=== PATIENT | male | born 1970 ===

== ENCOUNTER 2021-07-31 17:00 | Emergency (ER) | payer BC ==
[2021-07-31] MEDS ORDERED: Famotidine 20 MG/2 ML SDV IVPUSH ONE (17:10)
[2021-07-31] MEDS ORDERED: methylPREDNISolone Sodium Succinate 125 MG/2 ML SDV IV ONE (17:10)
[2021-07-31] MEDS ORDERED: diphenhydrAMINE 50 MG/ML SDV IVPUSH ONE (17:10)
[2021-07-31] MEDS ORDERED: EPINEPHrine 1 MG/ML SDV SUBCUT ONE (17:11)
[2021-07-31] MEDS ORDERED: EPINEPHrine 1 MG/1 ML Amp SUBCUT ONE (17:19)
[2021-07-31] MEDS ORDERED: Take Home: predniSONE 20 MG, 2 Tab Pack PO ONE (17:51)
--- NOTE | 2021-07-31 18:48 | EDM.PDOC ---
ED HPI GENERAL MEDICAL PROBLEM - General Chief Complaint: Allergic Reaction Stated Complaint: STUNG BY BEE;ALLERGIC Time Seen by Provider: 07/31/21 17:02 Source of Information: Reports: Patient History Limitations: Reports: No Limitations - History of Present Illness INITIAL COMMENTS - FREE TEXT/NARRATIVE: Pt. states that he was stung in the lower lip about 30 min prior to arriving in the ER. Pt. states that shortly thereafter, he developed onset if rash/pruritus to his torso and extremities. 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 Pt. also complains of edema and discomfort to his lower lip in area or sting. He denies any throat tightness/pain. Denies any shortness of breath. No wheezing. Denies any chest pain, nausea, or vomiting. No lightheadedness or weakness. Onset: Today Onset Date: 07/31/21 Location: Reports: Face, Generalized Associated Symptoms: Reports: Rash - Related Data Allergies Allergy/AdvReac Type Severity Reaction Status Date / Time bee venom protein (honey bee) Allergy Anaphylactic Verified 07/31/21 17:09 Shock Home Meds: Home Meds . [Unable to Verify Home Med List] 07/31/21 [History] Past Medical History Cardiovascular History: Reports: Hypertension Gastrointestinal History: Reports: Other (See Below) Other Gastrointestinal History: ulcerative cholitis Musculoskeletal History: Reports: Gout Endocrine/Metabolic History: Reports: Diabetes, Type II Social & Family History - Tobacco Use Tobacco Use Status *Q: Never Tobacco User ED ROS ALLERGIC REACTION - Review of Systems Review Of Systems: See Below Constitutional: Reports: No Symptoms HEENT: Reports: Other (swelling to lip from bee sting) Respiratory: Reports: No Symptoms. Denies: Shortness of Breath, Wheezing Cardiovascular: Reports: No Symptoms Endocrine: Reports: No Symptoms GI/Abdominal: Reports: No Symptoms : Reports: No Symptoms Musculoskeletal: Reports: No Symptoms Skin: Reports: Pruritis, Rash, Erythema Neurological: Reports: No Symptoms Psychiatric: Reports: No Symptoms Hematologic/Lymphatic: Reports: No Symptoms Immunologic: Reports: Anaphylaxis, Environmental Allergy ED EXAM GENERAL NO PERIP PULSE - Physical Exam Exam: See Below Exam Limited By: No Limitations General Appearance: Alert, WD/WN, No Apparent Distress Eye Exam: Bilateral Eye: EOMI, PERRL Nose: Normal Inspection, Normal Mucosa, No Blood Throat/Mouth: Normal Inspection, Normal Lips, Normal Teeth, Normal Gums, Normal Oropharynx, Normal Voice, No Airway Compromise Head: Atraumatic, Normocephalic Neck: Normal Inspection, Supple, Non-Tender, Full Range of Motion Respiratory/Chest: No Respiratory Distress, Lungs Clear, Normal Breath Sounds, No Accessory Muscle Use, Chest Non-Tender Cardiovascular: Normal Peripheral Pulses, Regular Rate, Rhythm, No Edema, No JVD, No Murmur GI/Abdominal: Normal Bowel Sounds, Soft, Non-Tender, No Organomegaly, No Distention, No Mass (Male) Exam: Deferred Rectal (Males) Exam: Deferred Back Exam: Normal Inspection, Full Range of Motion Extremities: Redness Neurological: Alert, Oriented, CN II-XII Intact, No Motor/Sensory Deficits Psychiatric: Normal Affect, Normal Mood Skin Exam: Warm, Dry, Intact, Erythema, Excoriations Lymphatic: No Adenopathy Course - Vital Signs Last Recorded V/S: Last Vital Signs Temp 37.3 C 07/31/21 17:00 Pulse 113 H 07/31/21 17:00 Resp 20 07/31/21 17:00 BP 130/82 07/31/21 17:00 Pulse Ox 97 07/31/21 17:00 - Orders/Labs/Meds Meds: Medications Discontinued Medications Generic Name Dose Route Start Last Admin Trade Name Kasey PRN Reason Stop Dose Admin Diphenhydramine HCl 50 mg 07/31/21 17:10 07/31/21 17:20 Diphenhydramine 50 Mg/Ml Sdv IVPUSH 07/31/21 17:11 50 mg ONETIME ONE Administration Epinephrine HCl 0.5 mg 07/31/21 17:11 Epinephrine 1 Mg/Ml Sdv SUBCUT 07/31/21 17:12 ONETIME ONE Epinephrine HCl 0.5 mg 07/31/21 17:19 07/31/21 17:19 Epinephrine 1 Mg/1 Ml Amp SUBCUT 07/31/21 17:20 0.5 mg ONETIME ONE Administration Famotidine 20 mg 07/31/21 17:10 07/31/21 17:20 Famotidine 20 Mg/2 Ml Sdv IVPUSH 07/31/21 17:11 20 mg ONETIME ONE Administration Methylprednisolone Sodium Succinate 125 mg 07/31/21 17:10 07/31/21 17:20 Methylprednisolone Sodium Succinate 125 Mg/2 Ml Sdv IV 07/31/21 17:11 125 mg ONETIME ONE Administration Prednisone 2 packet 07/31/21 17:51 07/31/21 17:57 Take Home: Prednisone 20 Mg, 2 Tab Pack PO 07/31/21 17:52 2 packet ONETIME ONE Administration - Re-Assessments/Exams Free Text/Narrative Re-Assessment/Exam: 07/31/21 18:50 Pt. reported near complete resolution of symptoms after receiving the above medications and requested discharge shortly after receiving them. He was observed for some time, and lip swelling and erythema were noted to be improving. Departure - Departure Time of Disposition: 18:00 Disposition: Home, Self-Care 01 Clinical Impression: Allergic reaction - Discharge Information Instructions: Allergies, Adult, [id number], Prednisone tablets Referrals: Omar Anguiano MD [Primary Care Provider] - Forms: ED Department Discharge Additional Instructions: Prednisone 20mg 2 tabs daily for 6 days total Epi Pen 0.3mg inject at onset of allergic reaction. Benadryl 25mg 2 tabs every 4-6 hours for continued itching Return to ER if you have troubles breathing, throat tightness, or call if you have any worrisome signs/symptoms. Sepsis Event Note (ED) - Evaluation Sepsis Screening Result: No Definite Risk - Focused Exam Vital Signs: Vital Signs Temp Pulse Resp BP Pulse Ox 07/31/21 17:00 37.3 C 113 H 20 130/82 97 - Assessment/Plan Plan: Prednisone 20mg 2 tabs daily for 6 days total Epi Pen 0.3mg inject at onset of allergic reaction. Benadryl 25mg 2 tabs every 4-6 hours for continued itching Return to ER if you have troubles breathing, throat tightness, or call if you have any worrisome signs/symptoms.
== END 2021-07-31 17:45 | disposition home or self-care (01) ==
LOC: VM.ED 17:00
DX: T78.40XA Allergy, unspecified, initial encounter (principal); I10 Essential (primary) hypertension; E11.9 Type 2 diabetes mellitus without complications; Z91.030 Bee allergy status
CPT/HCPCS: 96372; 96374; 96375; 99282-25; 99283; J0171; J1200; J2930; J3490; J7512